=== PATIENT | male | born 1995 | race African-American/Black ===

== ENCOUNTER 2022-06-25 19:35 | Emergency (ER) | payer OTHER ==
[2022-06-25 20:07] VITALS: BP 131/78; PULSE 95; RESP 19; TEMP 98; BMI 25.7
[2022-06-25] MEDS ORDERED: DOXYCYCLINE HYCLATE 100 MG CAPSULE PO ONE ×2 (21:42→23:19)
[2022-06-25 23:14] LABS: EPI CELLS 3 /uL (0-25.1); HYALINE CASTS 1 /uL (0-3.1); PH,URINE 5.5 (5.0-8.0); URINE APPEARANCE CLEAR; URINE BACTERIA 36 /uL (0-1359); URINE BILIRUBIN NEGATIVE (NEGATIVE); URINE COLOR YELLOW; URINE GLUCOSE (UA) NEGATIVE (NEGATIVE); URINE KETONE 3+ (NEGATIVE); URINE LEUK ESTERASE TRACE (NEGATIVE); URINE NITRITE NEGATIVE (NEGATIVE); URINE PROTEIN NEGATIVE (NEGATIVE); URINE RBC 1 /uL (0-23.9); URINE UROBILINOGEN 0.2 mg/dL (0.2-1.0); URINE WBC 31 /uL (0-25.8)
[2022-06-26 00:47] LABS: HIV INTERPRETATION NEGATIVE (NEGATIVE)
== END 2022-06-26 01:19 | disposition home or self-care (01) ==
LOC: JER 19:35
PROC: 3E023GC Introduction of Other Therapeutic Substance into Muscle, Percutaneous Approach (ICD-10-PCS; principal; 2022-06-25)
DX: R30.0 Dysuria (principal)
CPT/HCPCS: 36415; 76870-TC; 81003; 86780; 87086; 87389; 87491; 87591; 99284-25